=== PATIENT | male | born 1930 | race Caucasian/White ===

== ENCOUNTER 2016-07-22 07:22 | Emergency (ER) | payer MEDICARE, BC, OTHER ==
[~2016-07-22] VITALS: Ht 175.3 cm; Wt 75.0 kg
[~2016-07-22 07:22] MED LIST: CEPH500C3 PO
[2016-07-22 07:25] VITALS: BP 136/66; PULSE 76; RESP 16; TEMP 98.7; O2SAT 96
--- NOTE | 2016-07-22 07:34 | PD ---
HPI Chief Complaint: Injury Time Seen by Provider: 07:33 Travel History International Travel<30 days: No Contact w/Intl Traveler<30days: No Traveled to known affect area: No History of Present Illness HPI 86-year-old male came to the emergency room after he tripped and stubbed his right great toe. Patient says that was on his floor. There was a lot of bleeding at the site. He was in intense pain when this first happened. He seems anxious and in pain still. He is awake and answering questions appropriately. He did not hit his head or injure any other part of his body. Vital signs were relatively stable. Patient cannot seem to remember well his last tetanus shot. He thinks it probably was 6 years ago but he is not 100% sure. [facility] Past Medical History Narrative Medical List of his past medical, surgical, social and family history was reviewed from the nursing note. 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 INGUINAL HERNIOPLASTY IN 2000) Appendectomy: Yes Oral Surgery: Yes (TONSILECTOMY) Tonsillectomy: Yes Other Surgery: Yes Social History Alcohol Use: No Tobacco Use: No Substance Use: No Allergies-Medications (Allergen,Severity, Reaction): Coded Allergies: Gabapentin (Verified Allergy, Severe, DIFFICULTY OF SWALLOWING, SOB, ) Mellaril (Verified Allergy, Severe, FLUSHED, HOT, 07/22/16) Comments List of his allergies reviewed from the nursing note. Reported Meds & Prescriptions Reported Meds & Active Scripts Active Bactrim DS (Sulfamethoxazole-Trimethoprim) 800-160 Mg Tab 1 Tab PO BID Hydrocodone-Acetaminophen 5-325 mg Tab 1 Tab PO Q6H PRN Keflex (Cephalexin) 500 Mg Cap 500 Mg PO Q8H Narrative Medication List of his home medications reviewed from the nursing note. Review of Systems Except as stated in HPI: all other systems reviewed are Neg Physical Exam Narrative GENERAL: Awake, alert, anxious, elderly, moderate distress SKIN: Focused skin assessment warm/dry. Right great toe has a laceration proximal to the nail. The bleeding seems to be controlled. Good cap refill distally. HEAD: Atraumatic. Normocephalic. EYES: Pupils equal and round. No scleral icterus. No injection or drainage. ENT: No nasal bleeding or discharge. Mucous membranes pink and moist. NECK: Trachea midline. No JVD. CARDIOVASCULAR: Regular rate and rhythm. No murmur appreciated. RESPIRATORY: No accessory muscle use. Clear to auscultation. Breath sounds equal bilaterally. GASTROINTESTINAL: Abdomen soft, non-tender, nondistended. Hepatic and splenic margins not palpable. MUSCULOSKELETAL: No obvious deformities. No clubbing. No cyanosis. No edema. Please see under the skin for the right great toe laceration description NEUROLOGICAL: Awake and alert. No obvious cranial nerve deficits. Motor grossly within normal limits. Normal speech. PSYCHIATRIC: Appropriate mood and affect; insight and judgment normal. Data Data Last Documented VS Vital Signs Date Time Temp Pulse Resp B/P Pulse Ox O2 Delivery O2 Flow Rate FiO2 07/22/16 07:25 98.7 76 16 136/66 96 Orders Toe (Min 2vws) (07/22/16 ) Acetamin-Hydrocod 325-5 Mg ([place] 5-325 (07/22/16 07:45) Tetanus/Diphtheria Tox Adult (Tetanus/Di (07/22/16 07:45) Cephalexin (Keflex) (07/22/16 08:15) Lidocai-Epi 1%-1:100,000 Inj (Xylocaine- (07/22/16 08:45) Shoe Post Op (07/22/16 ) Shoe Cast (07/22/16 ) MDM Medical Decision Making Medical Screen Exam Complete: Yes Emergency Medical Condition: Yes Medical Record Reviewed: Yes Differential Diagnosis Fracture phalanx, laceration Narrative Course 7:51 AM patient was medicated for pain. He was given tetanus. Awaiting for the x-ray to be done and resulted. 8:43 AM the distal phalanx shows an impacted fracture. I discussed the case with Dr. Park from podiatry. She was in agreement with the antibiotic. She wanted the wound to be cleaned well and loosely sutured. As per her patient could be discharged home on antibiotic and given a follow-up to her office. In fact as per her patient could go to her office today and make an appointment for an outpatient surgery. The PA will do the laceration repair. Please refer to her notes. Procedures EKG Prior to Arrival: No Diagnosis Primary Impression: Fracture of distal phalanx of toe Additional Impression: Toe laceration Qualified Code: S91.211A - Laceration of right great toe without foreign body with damage to nail, initial encounter Referrals: Chanell Park DPM Additional Instructions: Please follow-up with the medical and scientific illustrator was name and number been given to you in the discharge paper. You should go to her office after discharge from here to get an appointment for the outpatient surgery for the toe. Use the postop shoe for ambulation. Keep the wound clean and dry. Take the medication as per the prescription direction. Med/Other Pt SpecificInfo: Prescription(s) given Scripts Hydrocodone-Acetaminophen 5-325 mg Tab1 Tab PO Q6H PRN (PAIN) #20 TAB Ref 0 Prov:Manoj Johnson MD 07/22/16 Cephalexin (Keflex)500 Mg [id number] Mg PO Q8H #30 CAP Ref 0 Prov:Manoj Johnson MD 07/22/16 Disposition: DISCHARGE HOME Condition: Stable Manoj Johnson MD Jul 22, 2016 07:34
[2016-07-22] MEDS ORDERED: ACETAMINOPHEN/HYDROcodone 325 MG/5 MG TAB PO ONE (07:45)
[2016-07-22] MEDS ORDERED: TETANUS/DIPHTHERIA TOXOID ADULT 0.5 ML VIAL IM ONE (07:45)
[2016-07-22] MEDS ORDERED: CEPHALEXIN MONOHYDRATE 500 MG CAP PO ONE (08:15)
--- NOTE | 2016-07-22 08:34 | RADRPT ---
EXAM DATE/TIME: 07/22/2016 07:37 [facility] COMPARISON: ANKLE LEFT COMPLETE ([id number]), March 08, 2015, 16:45. INDICATIONS : Right Great toe swelling MEDICAL HISTORY : Arthritis. Neuropathy SURGICAL HISTORY : None. ENCOUNTER: Initial ACUITY: 1 day PAIN SCORE: 10/10 LOCATION: Right Great toe FINDINGS: The examination demonstrates a mildly displaced, impacted fracture involving the distal phalanx of th e first digit. There are mild degenerative changes in the first metatarsal phalangeal joint as well. The visualized bony structures demonstrate osteopenia. CONCLUSION: Impacted, minimally displaced fracture through the distal phalanx of the right great toe. Say Mario MD on July 22, 2016 at 8:31 Board Certified Radiologist. This report was verified electronically.
[2016-07-22] MEDS ORDERED: LIDOCAINE 1%/EPINEPHrine 1:100,000 SOLN 20 ML VIAL INFIL ONE (08:45)
[2016-07-22] MEDS ORDERED: CEPH-460 PO (08:47)
--- NOTE | 2016-07-22 09:13 | PD ---
Physical Exam Time Seen by Provider: 09:10 Narrative I repaired the laceration to the right great toe. Data Data Last Documented VS Vital Signs Date Time Temp Pulse Resp B/P Pulse Ox O2 Delivery O2 Flow Rate FiO2 07/22/16 07:25 98.7 76 16 136/66 96 Orders Toe (Min 2vws) (07/22/16 ) Acetamin-Hydrocod 325-5 Mg ([place] 5-325 (07/22/16 07:45) Tetanus/Diphtheria Tox Adult (Tetanus/Di (07/22/16 07:45) Cephalexin (Keflex) (07/22/16 08:15) Lidocai-Epi 1%-1:100,000 Inj (Xylocaine- (07/22/16 08:45) Shoe Post Op (07/22/16 ) MDM Supervised Visit with ELI: Yes Narrative Course I repaired the laceration to the right great toe. See my procedure note for laceration repair. Procedures Procedure Narrative LACERATION LOCATION: Right great toe at base of toenail LENGTH: 2 cm NUMBER OF STITCHES/JANET: 4 simple interrupted sutures REPAIR: The area of the laceration was prepped with Betadine and sterilely draped. The toe was digitally blocked with 1% lidocaine. The wound was copiously irrigated and explored without evidence of foreign body , tendon injury or neurovascular injury. The wound was closed using 4-0 Prolene. This was a single layer repair. A sterile dressing was applied. The patient was advised to keep the dressing clean and dry. Patient tolerated the procedure well. Diagnosis Primary Impression: Fracture of distal phalanx of toe Additional Impression: Toe laceration Qualified Code: S91.211A - Laceration of right great toe without foreign body with damage to nail, initial encounter Referrals: Chanell Park DPM Additional Instruction: Please follow-up with the logistics operations director was name and number been given to you in the discharge paper. You should go to her office after discharge from here to get an appointment for the outpatient surgery for the toe. Use the postop shoe for ambulation. Keep the wound clean and dry. Take the medication as per the prescription direction. Scripts Cephalexin (Keflex)500 Mg [id number] Mg PO Q8H #30 CAP Ref 0 Prov:Manoj Johnson MD 07/22/16 Disposition: 01 DISCHARGE HOME Condition: Stable Lilo Corona Jul 22, 2016 09:12
[2016-07-22] MEDS ORDERED: HYDR-3516 PO (09:27)
== END 2016-07-22 09:48 | disposition home or self-care (01) ==
LOC: NEPE 07:22
DX: S92.421A Displaced fracture of distal phalanx of right great toe, initial encounter for closed fracture (principal); W18.40XA Slipping, tripping and stumbling without falling, unspecified, initial encounter
CPT/HCPCS: 12001; 73660; 99283; L3260

== ENCOUNTER 2016-07-25 08:26 | Emergency (ER) | payer MEDICARE, BC, OTHER ==
[~2016-07-25] VITALS: Ht 175.3 cm; Wt 70.0 kg
[~2016-07-25 08:26] MED LIST changes: +CEPH-460 PO; -CEPH500C3 PO; +HYDR-3516 PO
[2016-07-25 08:42] VITALS: BP 140/74; PULSE 72; RESP 20; TEMP 97.7; O2SAT 97
[2016-07-25] MEDS ORDERED: TETANUS/DIPHTHERIA TOXOID ADULT 0.5 ML VIAL IM ONE (09:00)
[2016-07-25 09:15] LABS: AUTOMATED NEUTROPHIL # 2.8 TH/MM3 (1.8-7.7); BASOPHIL % 0.9 % (0.0-2.0); EOSINOPHIL # 0.3 TH/MM3 (0-0.4); HEMATOCRIT 35.2 % (39.0-51.0); HEMO FLAGS DIFF FINAL; LYMPH % 29.3 % (9.0-44.0); LYMPHOCYTE # 1.6 TH/MM3 (1.0-4.8); MEAN CELL VOLUME 93.5 FL (80.0-100.0); MEAN CORPUSCULAR HEMOGLOBIN 32.3 PG (27.0-34.0); MEAN CORPUSCULAR HGB CONC 34.6 % (32.0-36.0); MONO % 10.6 % (0.0-8.0); NEUT % 53.2 % (16.0-70.0); PLATELET COUNT 206 TH/MM3 (150-450); RED BLOOD COUNT 3.77 MIL/MM3 (4.50-5.90); RED CELL DISTRIBUTION WIDTH 14.1 % (11.6-17.2); WHITE BLOOD COUNT 5.3 TH/MM3 (4.0-11.0)
[2016-07-25 09:31] LABS: BICARBONATE 27.6 MEQ/L (21.0-32.0); POTASSIUM 3.7 MEQ/L (3.5-5.1)
--- NOTE | 2016-07-25 09:43 | PD ---
HPI Chief Complaint: Medical Clearance Time Seen by Provider: 08:43 Travel History International Travel<30 days: No Contact w/Intl Traveler<30days: No Traveled to known affect area: No History of Present Illness HPI 86 yo male arrives by EMS. He reports an episode of shaking when he woke up this morning lasting maybe 30 minutes or so. It resolved spontaneously. He reports yesterday he was seen by podiatry Dr. Saldaña. A few days prior the patient suffered an impacted fracture of the right great toe with a laceration. That was repaired in the ER with a follow-up yesterday as described above. He denies fever. He denies interim injury. He reports compliance with Keflex. He also states he believes he did not receive a tetanus shot during his last visit. Review the records show that it was ordered. He notes a wound care nurse was supposed to visit him today however none called. The patient did arrive to the ER at approximately 8:40 AM. PFSH Past Medical History Arthritis: Yes Blood Disorders: No Anxiety: Yes (ATIVAN) Cancer: Yes (RECTAL IN 2002) Cardiovascular Problems: No Chemotherapy: Yes (and radiation) Diabetes: No Diminished Hearing: Yes Endocrine: No Gastrointestinal Disorders: Yes Glaucoma: No Genitourinary: No Immune Disorder: No Implanted Vascular Access Dvce: No Insomnia: Yes Musculoskeletal: Yes (SPINAL STENOSIS) Neurologic: Yes (PERIPHERAL NEUROPATHY BOTH LOWER EXT(feet)) Respiratory: No Radiation Therapy: Yes (IN 2002 FOR RECTAL CA) Past Surgical History Abdominal Surgery: Yes (LT. INGUINAL HERNIOPLASTY IN 2000) Appendectomy: Yes Oral Surgery: Yes (TONSILECTOMY) Tonsillectomy: Yes Other Surgery: Yes Social History Alcohol Use: No Tobacco Use: No Substance Use: No Allergies-Medications (Allergen,Severity, Reaction): Coded Allergies: Gabapentin (Verified Allergy, Severe, DIFFICULTY OF SWALLOWING, SOB, ) Mellaril (Verified Allergy, Severe, FLUSHED, HOT, 07/22/16) Reported Meds & Prescriptions Reported Meds & Active Scripts Active Hydrocodone-Acetaminophen 5-325 mg Tab 1 Tab PO Q6H PRN Keflex (Cephalexin) 500 Mg Cap 500 Mg PO Q8H Review of Systems Except as stated in HPI: all other systems reviewed are Neg General / Constitutional: Positive: Other, No: Fever Musculoskeletal: Positive: Pain Skin: Positive Lesions Physical Exam Narrative GENERAL: 86-year-old male, mildly anxious though cooperative SKIN: Focused skin assessment warm/dry. Minimal erythema overlying the dorsum of the right great toe, well approximated Prolene sutures, no purulent discharge about the right great toe. The right great toe is slightly warm. HEAD: Atraumatic. Normocephalic. EYES: Pupils equal and round. No scleral icterus. No injection or drainage. ENT: No nasal bleeding or discharge. Mucous membranes pink and moist. NECK: Trachea midline. No JVD. CARDIOVASCULAR: Regular rate and rhythm. No murmur appreciated. RESPIRATORY: No accessory muscle use. Clear to auscultation. Breath sounds equal bilaterally. GASTROINTESTINAL: Abdomen soft, non-tender, nondistended. Hepatic and splenic margins not palpable. MUSCULOSKELETAL: No obvious deformities. No clubbing. No cyanosis. No edema. NEUROLOGICAL: Awake and alert. No obvious cranial nerve deficits. Motor grossly within normal limits. Normal speech. PSYCHIATRIC: Appropriate mood and affect; insight and judgment normal. Data Data Last Documented VS Vital Signs Date Time Temp Pulse Resp B/P Pulse Ox O2 Delivery O2 Flow Rate FiO2 07/25/16 08:42 97.7 72 20 140/74 97 Room Air VS reviewed Orders Basic Metabolic Panel (Bmp) (07/25/16 08:51) Complete Blood Count With Diff (07/25/16 08:51) Wound Culture And Gram Stain (07/25/16 08:51) Iv Access Insert/Monitor (07/25/16 08:51) Wound Care (07/25/16 08:51) Tetanus/Diphtheria Tox Adult (Tetanus/Di (07/25/16 09:00) Toe (Min 2vws) (07/25/16 08:51) Sulfamet-Trimeth Ds 800-160 Mg (Bactrim (07/25/16 09:45) Labs Laboratory Tests Test 07/25/16 08:59 White Blood Count 5.3 TH/MM3 Red Blood Count 3.77 MIL/MM3 Hemoglobin 12.2 GM/DL Hematocrit 35.2 % Mean Corpuscular Volume 93.5 FL Mean Corpuscular Hemoglobin 32.3 PG Mean Corpuscular Hemoglobin 34.6 % Concent Red Cell Distribution Width 14.1 % Platelet Count 206 TH/MM3 Mean Platelet Volume 6.8 FL Neutrophils (%) (Auto) 53.2 % Lymphocytes (%) (Auto) 29.3 % Monocytes (%) (Auto) 10.6 % Eosinophils (%) (Auto) 6.0 % Basophils (%) (Auto) 0.9 % Neutrophils # (Auto) 2.8 TH/MM3 Lymphocytes # (Auto) 1.6 TH/MM3 Monocytes # (Auto) 0.6 TH/MM3 Eosinophils # (Auto) 0.3 TH/MM3 Basophils # (Auto) 0.0 TH/MM3 CBC Comment DIFF FINAL Differential Comment Sodium Level 137 MEQ/L Potassium Level 3.7 MEQ/L Chloride Level 101 MEQ/L Carbon Dioxide Level 27.6 MEQ/L Anion Gap 8 MEQ/L Blood Urea Nitrogen 15 MG/DL Creatinine 0.74 MG/DL Estimat Glomerular Filtration 100 ML/MIN Rate Random Glucose 93 MG/DL Calcium Level 8.8 MG/DL MDM Medical Decision Making Medical Screen Exam Complete: Yes Emergency Medical Condition: Yes Medical Record Reviewed: Yes Differential Diagnosis cellulitis, septic arthritis, abscess, fracture Narrative Course CBC & BMP Diagram 07/25/16 08:59 The BMP is normal Diagnosis Primary Impression: Fracture of distal phalanx of toe Additional Impression: Toe laceration Qualified Code: S91.211D - Laceration of right great toe without foreign body with damage to nail, subsequent encounter Referrals: Primary Care Physician 2 days Additional Instructions: You have a choice when it comes to health care, and we are glad that you chose [facility]. Hopefully, we have met your expectations on today's visit. You are welcome to return to [facility] at any time, as we are committed to meeting the health care needs of our community. Med/Other Pt SpecificInfo: Prescription(s) given Scripts Sulfamethoxazole-Trimethoprim (Bactrim DS)800-160 Mg Tab1 Tab PO BID #14 TAB Ref 0 Prov:Say Ospina MD 07/25/16 Disposition: 01 DISCHARGE HOME Condition: Stable Say Ospina MD Jul 25, 2016 09:43
--- NOTE | 2016-07-25 09:43 | RADRPT ---
EXAM DATE/TIME: 07/25/2016 08:56 [facility] COMPARISON: TOE RIGHT 1ST DIGIT(MIN 2VWS), July 22, 2016, 7:37. INDICATIONS : Patient complains of pain and swelling. MEDICAL HISTORY : Arthritis. Neuropathy SURGICAL HISTORY : None. ENCOUNTER: Subsequent ACUITY: 1 week PAIN SCORE: 5/10 LOCATION: Right foot, great toe FINDINGS: A minimally displaced transverse fracture of the proximal aspect of the great toe distal phalanx is a gain noted without significant change from the previous examination. Mild arthritic changes noted in the great toe. Elsewhere in the visualized foot, or changes in the fifth metatarsal most suggestive o f Paget's disease with coarsening of the trabecular pattern and diffuse mixed lucent and sclerotic ch jovita involving the entirety of the bone. Fibrous dysplasia would be an additional consideration. CONCLUSION: Great toe fracture is unchanged Lobo Graves MD on July 25, 2016 at 9:36 Board Certified Radiologist. This report was verified electronically.
[2016-07-25] MEDS ORDERED: SULFAMETHOXAZOLE-TRIMETHOPRIM DS 800-160 MG TAB PO ONE (09:45)
[2016-07-25] MEDS ORDERED: BACT800T5 PO (10:14)
--- NOTE | 2016-07-25 13:55 | HHI.FF ---
Face to Face Verification Diagnosis: (1) Toe laceration (2) Fracture of distal phalanx of toe Home Health Nursing Order: Signs/symptoms of disease process Wound care and dressing changes I have seen patient Kvng Wade on 07/25/16. My clinical findings support the need for the requested home health care services because: Limited ability to care for self I certify that my clinical findings support that this patient is homebound because: Need for psychosocial assistance Say Ospina MD Jul 25, 2016 13:55
== END 2016-07-25 14:44 | disposition home or self-care (01) ==
LOC: NEPC 08:26
DX: S92.421D Displaced fracture of distal phalanx of right great toe, subsequent encounter for fracture with routine healing (principal); S91.211D Laceration without foreign body of right great toe with damage to nail, subsequent encounter; B95.61 Methicillin susceptible Staphylococcus aureus infection as the cause of diseases classified elsewhere; H91.90 Unspecified hearing loss, unspecified ear; Z23 Encounter for immunization; Z87.39 Personal history of other diseases of the musculoskeletal system and connective tissue; Z86.59 Personal history of other mental and behavioral disorders; Z85.048 Personal history of other malignant neoplasm of rectum, rectosigmoid junction, and anus; Z87.19 Personal history of other diseases of the digestive system; Z86.69 Personal history of other diseases of the nervous system and sense organs; X58.XXXD Exposure to other specified factors, subsequent encounter
CPT/HCPCS: 73660; 80048; 85025; 86403; 87070; 87186; 90471; 90714

== ENCOUNTER 2016-10-02 07:46 | Emergency (ER) | payer MEDICARE, BC, OTHER ==
[~2016-10-02] VITALS: Ht 175.3 cm; Wt 75.0 kg
[~2016-10-02 07:46] MED LIST changes: +BACT800T5 PO
[2016-10-02 07:48] VITALS: BP 128/63; PULSE 71; RESP 16; TEMP 97.6; O2SAT 95
--- NOTE | 2016-10-02 08:32 | PD ---
HPI Chief Complaint: Numbness/Tingling Time Seen by Provider: 08:18 Travel History International Travel<30 days: No Contact w/Intl Traveler<30days: No Traveled to known affect area: No History of Present Illness HPI Patient 86-year-old delightful man who presents emergency department for evaluation of numbness and tingling to his lower extremities which is been present for years and is no different today, as well as some lesions on his scalp which been present for some time as well. Patient states took the bus here today and was going to discuss with his regular physician but has not had an opportunity to do so yet. He states that he has taken gabapentin in the past but is allergic to it and cannot take. He denies any chest pain shortness of breath abdominal pain nausea vomiting focalized weakness visual difficulties. Patient states he took the bus here as he does no longer drive. PFSH Past Medical History Medical History: Denies Significant Hx Arthritis: Yes Blood Disorders: No Anxiety: Yes (ATIVAN) Cancer: Yes (RECTAL IN 2002) Cardiovascular Problems: No Chemotherapy: Yes (and radiation) Diabetes: No Diminished Hearing: Yes Endocrine: No Gastrointestinal Disorders: Yes Glaucoma: No Genitourinary: No Immune Disorder: No Implanted Vascular Access Dvce: No Insomnia: Yes Musculoskeletal: Yes (SPINAL STENOSIS) Neurologic: Yes (PERIPHERAL NEUROPATHY BOTH LOWER EXT(feet)) Respiratory: No Radiation Therapy: Yes (IN 2002 FOR RECTAL CA) Tetanus Vaccination: < 5 Years Influenza Vaccination: Yes Past Surgical History Abdominal Surgery: Yes Appendectomy: Yes Oral Surgery: Yes (TONSILECTOMY) Tonsillectomy: Yes Other Surgery: Yes Social History Alcohol Use: No Tobacco Use: No Substance Use: No Allergies-Medications (Allergen,Severity, Reaction): Coded Allergies: Gabapentin (Verified Allergy, Severe, DIFFICULTY OF SWALLOWING, SOB, ) Mellaril (Verified Allergy, Severe, FLUSHED, HOT, 10/02/16) Reported Meds & Prescriptions Reported Meds & Active Scripts Active No Active Prescriptions or Reported Medications Review of Systems Except as stated in HPI: all other systems reviewed are Neg Physical Exam Narrative GENERAL: Well-developed well-nourished in no apparent distress SKIN: Several small foci of scaly lesions on his scalp as well as one on his right anterior chest. Could be consistent with squamous cell carcinoma was. No evidence of melanoma seen in these areas. No cellulitis no erythema no excoriations. HEAD: Atraumatic. Normocephalic. EYES: Pupils equal and round. No scleral icterus. No injection or drainage. ENT: No nasal bleeding or discharge. Mucous membranes pink and moist. NECK: Trachea midline. No JVD. CARDIOVASCULAR: Regular rate and rhythm. No murmur appreciated. RESPIRATORY: No accessory muscle use. Clear to auscultation. Breath sounds equal bilaterally. GASTROINTESTINAL: Abdomen soft, non-tender, nondistended. Hepatic and splenic margins not palpable. MUSCULOSKELETAL: No obvious deformities. No clubbing. No cyanosis. No edema. NEUROLOGICAL: Awake and alert and oriented. Ambulates with a short gait but narrow. Cranial nerves II through XII are grossly intact and nonfocal, 5 out of 5 strength in all 4 extremity's. Cerebellar testing negative. PSYCHIATRIC: Appropriate mood and affect; insight and judgment normal. Data Data Last Documented VS Vital Signs Date Time Temp Pulse Resp B/P Pulse Ox O2 Delivery O2 Flow Rate FiO2 10/02/16 07:48 97.6 71 16 128/63 95 MDM Medical Decision Making Medical Screen Exam Complete: Yes Emergency Medical Condition: Yes Differential Diagnosis Peripheral neuropathy, squamous cell cancer, skin lesions, Narrative Course Patient 86-year-old male presents emergency department for evaluation of multiple chronic complaints, he appears well and in no obvious distress. Discussed with him he needs to follow-up with a commodities broker and was referred to the clinic in [facility]. The subject of his neuropathy recommended he take some Tylenol but no more than per label instructions. Discussed need for follow-up with his primary care physician and return to ED criteria. He was very grateful for the visit discharged to self-care. Diagnosis Primary Impression: Skin lesion Additional Impression: Peripheral neuropathy Referrals: [facility] Caller Additional Instructions: Call your primary care physician today, follow-up with a commodities broker as soon as possible. Try Tylenol 500 mg every 8 hours as needed for pain. No more frequent than that. Scripts No Active Prescriptions or Reported Meds Disposition: 01 DISCHARGE HOME Condition: Stable Jose L Clark MD Oct 02, 2016 08:32
== END 2016-10-02 09:37 | disposition home or self-care (01) ==
LOC: NEPC 07:46
DX: G62.9 Polyneuropathy, unspecified (principal); L98.8 Other specified disorders of the skin and subcutaneous tissue; Z85.048 Personal history of other malignant neoplasm of rectum, rectosigmoid junction, and anus
CPT/HCPCS: 99282

== ENCOUNTER 2016-10-17 10:48 | Emergency (ER) | payer MEDICARE, BC, OTHER ==
[~2016-10-17] VITALS: Ht 172.7 cm; Wt 60.0 kg
[2016-10-17 10:52] VITALS: BP 126/62; PULSE 71; RESP 20; TEMP 97.6; O2SAT 97
[2016-10-17] MEDS ORDERED: IBUP-232 PO (10:59)
[2016-10-17 11:27] LABS: AUTOMATED NEUTROPHIL # 3.1 TH/MM3 (1.8-7.7); BASOPHIL % 0.9 % (0.0-2.0); EOSINOPHIL # 0.2 TH/MM3 (0-0.4); EOSINOPHIL % 3.4 % (0.0-4.0); HEMATOCRIT 34.6 % (39.0-51.0); HEMO FLAGS DIFF FINAL; LYMPH % 21.8 % (9.0-44.0); LYMPHOCYTE # 1.1 TH/MM3 (1.0-4.8); MEAN CELL VOLUME 93.9 FL (80.0-100.0); MEAN CORPUSCULAR HEMOGLOBIN 31.8 PG (27.0-34.0); MEAN CORPUSCULAR HGB CONC 33.9 % (32.0-36.0); MONO % 10.3 % (0.0-8.0); NEUT % 63.6 % (16.0-70.0); PLATELET COUNT 220 TH/MM3 (150-450); RED BLOOD COUNT 3.69 MIL/MM3 (4.50-5.90); RED CELL DISTRIBUTION WIDTH 13.8 % (11.6-17.2)
--- NOTE | 2016-10-17 11:31 | PD ---
HPI Chief Complaint: Altered Mental Status Time Seen by Provider: 11:00 Travel History International Travel<30 days: No Contact w/Intl Traveler<30days: No Traveled to known affect area: No History of Present Illness HPI 86-year-old male presents from an urgent care for evaluation of dizziness and unsteady gait with unknown baseline. Report was that he took the bus to the urgent care and they were concerned about how unsteady he was. Patient does note dizziness intermittently and pain near his left jaw where he had biopsy of a skin lesion. He states that the dizziness is new for him and he does feel a little bit weak. He denies any current pain or complaints other than the dizziness at this time. He states that he had the biopsy to check for cancer. Patient is by himself and a poor historian. PFSH Past Medical History Arthritis: Yes Blood Disorders: No Anxiety: Yes (ATIVAN) Cancer: Yes (RECTAL IN 2002) Cardiovascular Problems: No Chemotherapy: Yes (and radiation) Diabetes: No Diminished Hearing: Yes Endocrine: No Gastrointestinal Disorders: Yes Glaucoma: No Genitourinary: No Immune Disorder: No Implanted Vascular Access Dvce: No Insomnia: Yes Musculoskeletal: Yes (SPINAL STENOSIS) Neurologic: Yes (PERIPHERAL NEUROPATHY BOTH LOWER EXT(feet)) Respiratory: No Radiation Therapy: Yes (IN 2002 FOR RECTAL CA) Past Surgical History Abdominal Surgery: Yes Appendectomy: Yes Oral Surgery: Yes (TONSILECTOMY) Tonsillectomy: Yes Other Surgery: Yes Social History Alcohol Use: No Tobacco Use: No Substance Use: No Allergies-Medications (Allergen,Severity, Reaction): Coded Allergies: Gabapentin (Verified Allergy, Severe, DIFFICULTY OF SWALLOWING, SOB, ) Mellaril (Verified Allergy, Severe, FLUSHED, HOT, 10/02/16) Reported Meds & Prescriptions Reported Meds & Active Scripts Active Reported Ibuprofen 600 Mg Tab 600 Mg PO Q8H PRN Review of Systems ROS Limitations: Poor Historian Except as stated in HPI: all other systems reviewed are Neg Physical Exam Narrative GENERAL: Well-nourished, well-developed patient. SKIN: Warm and dry. Left orthodox area with no active signs of infection noted to biopsy site and appears to be well healing HEAD: Normocephalic EYES: No injection or drainage. ENT: No nasal drainage noted. NECK: Supple, trachea midline. CARDIOVASCULAR: Regular rate and rhythm RESPIRATORY: Breath sounds equal bilaterally at apices. No accessory muscle use. GASTROINTESTINAL: Abdomen soft, non-tender, nondistended. NEUROLOGICAL: Awake and alert. Moves all extremities. Normal speech. Data Data Last Documented VS Vital Signs Date Time Temp Pulse Resp B/P Pulse Ox O2 Delivery O2 Flow Rate FiO2 10/17/16 13:27 68 20 122/70 10/17/16 11:39 96 10/17/16 10:52 97.6 Orders Magnesium (Mg) (10/17/16 11:00) Phosphorus (Po4) (10/17/16 11:00) Complete Blood Count With Diff (10/17/16 11:00) Comprehensive Metabolic Panel (10/17/16 11:00) Ckmb (Isoenzyme) Profile (10/17/16 11:00) Troponin I (10/17/16 11:00) Urinalysis - C+S If Indicated (10/17/16 11:00) Act Partial Throm Time (Ptt) (10/17/16 11:00) Prothrombin Time / Inr (Pt) (10/17/16 11:00) Ct Brain W/O Iv Contrast(Rout) (10/17/16 ) Chest, Single Ap (10/17/16 ) Electrocardiogram (10/17/16 ) Iv Access Insert/Monitor (10/17/16 11:00) Ecg Monitoring (10/17/16 11:00) Oximetry (10/17/16 11:00) CKMB (10/17/16 11:00) CKMB% (10/17/16 11:00) Labs Laboratory Tests Test 10/17/16 10/17/16 11:00 12:00 White Blood Count 5.0 TH/MM3 Red Blood Count 3.69 MIL/MM3 Hemoglobin 11.7 GM/DL Hematocrit 34.6 % Mean Corpuscular Volume 93.9 FL Mean Corpuscular Hemoglobin 31.8 PG Mean Corpuscular Hemoglobin 33.9 % Concent Red Cell Distribution Width 13.8 % Platelet Count 220 TH/MM3 Mean Platelet Volume 6.9 FL Neutrophils (%) (Auto) 63.6 % Lymphocytes (%) (Auto) 21.8 % Monocytes (%) (Auto) 10.3 % Eosinophils (%) (Auto) 3.4 % Basophils (%) (Auto) 0.9 % Neutrophils # (Auto) 3.1 TH/MM3 Lymphocytes # (Auto) 1.1 TH/MM3 Monocytes # (Auto) 0.5 TH/MM3 Eosinophils # (Auto) 0.2 TH/MM3 Basophils # (Auto) 0.0 TH/MM3 CBC Comment DIFF FINAL Differential Comment Prothrombin Time 10.7 SEC Prothromb Time International 1.0 RATIO Ratio Activated Partial 29.3 SEC Thromboplast Time Sodium Level 138 MEQ/L Potassium Level 4.4 MEQ/L Chloride Level 104 MEQ/L Carbon Dioxide Level 27.6 MEQ/L Anion Gap 6 MEQ/L Blood Urea Nitrogen 13 MG/DL Creatinine 0.69 MG/DL Estimat Glomerular Filtration 108 ML/MIN Rate Random Glucose 103 MG/DL Calcium Level 8.9 MG/DL Phosphorus Level 2.8 MG/DL Magnesium Level 2.5 MG/DL Total Bilirubin 0.5 MG/DL Aspartate Amino Transf 27 U/L (AST/SGOT) Alanine Aminotransferase 26 U/L (ALT/SGPT) Alkaline Phosphatase 68 U/L Total Creatine Kinase 125 U/L Creatine Kinase MB 3.2 NG/ML Troponin I LESS THAN 0.02 NG/ML Total Protein 7.2 GM/DL Albumin 3.7 GM/DL Urine Color DARK-YELLOW Urine Turbidity CLEAR Urine pH 5.0 Urine Specific [place] 1.016 Urine Protein NEG mg/dL Urine Glucose (UA) NEG mg/dL Urine Ketones NEG mg/dL Urine Occult Blood NEG Urine Nitrite NEG Urine Bilirubin NEG Urine Urobilinogen LESS THAN 2.0 MG/DL Urine Leukocyte Esterase NEG Urine RBC LESS THAN 1 /hpf Urine WBC LESS THAN 1 /hpf Urine Mucus FEW /lpf Microscopic Urinalysis Comment CULT NOT INDICATED MDM Medical Decision Making Medical Screen Exam Complete: Yes Emergency Medical Condition: Yes Medical Record Reviewed: Yes (h confirmed) Interpretation(s) CBC & BMP Diagram 10/17/16 11:00 Last [address] 10/17/16 0000 Signed Impressions: Service Date/Time: Monday, October 17, 2016 11:33 - CONCLUSION: Negative for acute process. Thomas Mario MD FACR Chest X-Ray 10/17/16 0000 Signed Impressions: Service Date/Time: Monday, October 17, 2016 11:03 - CONCLUSION: No acute disease. Thomas Mario MD FACR Differential Diagnosis Anemia, renal failure, intercranial, UTI, vertigo Narrative Course Will check blood work, imaging and reevaluate ed workup no acute, Patient denies any new complaints and states that they are feeling better. Patient happy with care, all questions answered. Patient knows that follow up is incumbent on them and to return to the emergency room immediately if new or worsening symptoms develop. Patient given strict return precautions, vitals reviewed and are normal, agrees to further workup as an outpatient. Patient able to ambulate without assistance and has a slow shuffling gait that he states has been that way for years. He states he wants to go when offered observation Diagnosis Primary Impression: Dizziness Patient Instructions: General Instructions Additional Instructions: return as needed, follow with primary thursday Med/Other Pt SpecificInfo: No Change to Meds Disposition: 01 DISCHARGE HOME Condition: Stable Sil Wynn MD Oct 17, 2016 11:31
[2016-10-17 11:38] LABS: APTT (PATIENT) 29.3 SEC (24.3-30.1); PROTHROMBIN TIME - PATIENT 10.7 SEC (9.8-11.6)
[2016-10-17 11:39] VITALS: O2SAT 96
--- NOTE | 2016-10-17 11:50 | RADRPT ---
EXAM DATE/TIME: 10/17/2016 11:33 [facility] COMPARISON: CT BRAIN W/O CONTRAST, July 03, 2010, 10:51. INDICATIONS : Weakness, cephalgia. RADIATION DOSE: 56.35 CTDIvol (mGy) MEDICAL HISTORY : Carcinoma, rectal. SURGICAL HISTORY : Appendectomy. ENCOUNTER: Initial ACUITY: 1 day PAIN SCALE: 3/10 LOCATION: Left temporal TECHNIQUE: Multiple contiguous axial images were obtained of the head. Using automated exposure control and adj ustment of the mA and/or kV according to patient size, radiation dose was kept as low as reasonably a chievable to obtain optimal diagnostic quality images. DICOM format image data is available electro nically for review and comparison. FINDINGS: CEREBRUM: The ventricles are normal for age. No evidence of midline shift, mass lesion, hemorrhage or acute in farction. No extra-axial fluid collections are seen. POSTERIOR FOSSA: The cerebellum and brainstem are intact. The 4th ventricle is midline. The cerebellopontine angle i s unremarkable. EXTRACRANIAL: The visualized portion of the orbits is intact. SKULL: The calvaria is intact. No evidence of skull fracture. CONCLUSION: Negative for acute process. Thomas Mario MD FACR on October 17, 2016 at 11:47 Board Certified Radiologist. This report was verified electronically.
--- NOTE | 2016-10-17 11:50 | RADRPT ---
EXAM DATE/TIME: 10/17/2016 11:03 [facility] COMPARISON: No previous studies available for comparison. INDICATIONS : Short of breath, palpitations today MEDICAL HISTORY : AMS SURGICAL HISTORY : lumbar fusion ENCOUNTER: Initial ACUITY: 1 day PAIN SCORE: Non-responsive. LOCATION: Bilateral chest FINDINGS: A single view of the chest demonstrates the lungs to be symmetrically aerated without evidence of mas s, infiltrate or effusion. The cardiomediastinal contours are unremarkable. Osseous structures are intact. CONCLUSION: No acute disease. Thomas Mario MD FACR on October 17, 2016 at 11:48 Board Certified Radiologist. This report was verified electronically.
[2016-10-17 11:57] LABS: ALT (GPT) 26 U/L (12-78); ANION GAP 6 MEQ/L (5-15); AST (GOT) 27 U/L (15-37); BICARBONATE 27.6 MEQ/L (21.0-32.0); BLOOD UREA NITROGEN 13 MG/DL (7-18); CHLORIDE 104 MEQ/L (98-107); GLOMERULAR FILTRATION RATE 108 ML/MIN (>89); MAGNESIUM 2.5 MG/DL (1.5-2.5); POTASSIUM 4.4 MEQ/L (3.5-5.1); SODIUM (NA) 138 MEQ/L (136-145)
[2016-10-17 12:01] LABS: ALKALINE PHOSPHATASE 68 U/L (45-117); CREATINE KINASE 125 U/L (39-308); TOTAL BILIRUBIN ADULT 0.5 MG/DL (0.2-1.0)
[2016-10-17 12:16] LABS: CKMB 3.2 NG/ML (0.5-3.6)
[2016-10-17 12:20] LABS: BLOOD, URINE NEG (NEG); COMMENT (UR) CULT NOT INDICATED; CULTURE IF INDICATED CULT NOT INDICATED; GLUCOSE,URINE NEG (NEG); KETONE, URINE NEG (NEG); MUCUS URINE FEW /lpf (OCC); NITRITE,URINE NEG (NEG); URINE COLOR DARK-YELLOW (YELLW/STRAW)
[2016-10-17 13:27] VITALS: BP 122/70
--- NOTE | 2016-10-17 14:24 | EKG ---
Date Performed: 10/17/2016 Time Performed: 11:47:53 PTAGE: 86 years EKG: BASELINE ARTIFACT PRESENT. Sinus rhythm INDETERMINATE AXIS ATYPICAL ECG Probably no significant change. PREVIOUS TRACING : 08/23/2014 14.57 DOCTOR: Joao Allen Interpretating Date/Time 10/17/2016 14:24:08
== END 2016-10-17 13:43 | disposition home or self-care (01) ==
LOC: NEPE 10:48
DX: R42 Dizziness and giddiness (principal); F41.9 Anxiety disorder, unspecified; G62.9 Polyneuropathy, unspecified; M19.90 Unspecified osteoarthritis, unspecified site; Z79.1 Long term (current) use of non-steroidal anti-inflammatories (NSAID)
CPT/HCPCS: 70450; 71010; 80053; 81001; 82550; 82552; 83735; 84100; 84484; 85025; 85610; 85730; 93005

== ENCOUNTER 2016-11-22 08:01 | Emergency (ER) | payer MEDICARE, BC, OTHER ==
[~2016-11-22] VITALS: Ht 175.3 cm; Wt 70.5 kg
[~2016-11-22 08:01] MED LIST changes: -BACT800T5 PO; -CEPH-460 PO; -HYDR-3516 PO; +IBUP-232 PO
[2016-11-22 08:12] VITALS: BP 143/67; PULSE 82; RESP 16; TEMP 98.4; O2SAT 98
[2016-11-22] MEDS ORDERED: TYLE325T PO (08:23)
[2016-11-22] MEDS ORDERED: NIAC500T4 PO (08:23)
[2016-11-22] MEDS ORDERED: ONE-TAB14 (08:23)
[2016-11-22] MEDS ORDERED: CO Q50CA (08:23)
[2016-11-22] MEDS ORDERED: VITATAB11 PO (08:23)
[2016-11-22] MEDS ORDERED: CEPH-460 PO (08:24)
[2016-11-22] MEDS ORDERED: PERI8.6T PO (08:27)
[2016-11-22] MEDS ORDERED: HYDR-3533 PO (08:27)
--- NOTE | 2016-11-22 08:27 | PD ---
HPI Chief Complaint: Skin Problem Time Seen by Provider: 08:12 Travel History International Travel<30 days: No Contact w/Intl Traveler<30days: No Traveled to known affect area: No History of Present Illness HPI 86, who presents to the emergency department complaining of left-sided facial pain. 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 He states since then he said pain and tightness in the area. No drainage. Otherwise has felt well. He is not taking any pain medications. They did put on prophylactic Keflex. He had a friend drop off today because been very sore. He is not on any blood thinners. He has fallen before and has instability at times due to some peripheral neuropathy. No other complaints. History Past Medical History Narrative Medical Peripheral neuropathy Social History Alcohol Use: No Tobacco Use: No Allergies-Medications (Allergen,Severity, Reaction): Coded Allergies: Gabapentin (Verified Allergy, Severe, DIFFICULTY OF SWALLOWING, SOB, ) Mellaril (Verified Allergy, Severe, FLUSHED, HOT, 11/22/16) Reported Meds & Prescriptions Reported Meds & Active Scripts Active Reported Ibuprofen 600 Mg Tab 600 Mg PO Q8H PRN Review of Systems Except as stated in HPI: all other systems reviewed are Neg Physical Exam Narrative GENERAL: Well-appearing 86-year-old man, no acute distress. SKIN: Focused skin assessment warm/dry. ENT: On the left cheek overlying the ramus of the mandible on the left there is a stellate surgical incision well approximated with stitches in place with no erythema redness swelling bruising or other abnormality. NECK: Trachea midline. No JVD. CARDIOVASCULAR: Warm and well perfused. RESPIRATORY: Normal rate and effort. MUSCULOSKELETAL: No obvious deformities. No clubbing. No cyanosis. No edema. Data Data Last Documented VS Vital Signs Date Time Temp Pulse Resp B/P Pulse Ox O2 Delivery O2 Flow Rate FiO2 11/22/16 08:14 18 11/22/16 08:12 98.4 82 143/67 98 MDM Medical Decision Making Medical Screen Exam Complete: Yes Emergency Medical Condition: Yes Differential Diagnosis Pain from skin surgery, infection, hematoma, nerve injury, other Narrative Course Medical decision making This 86, who presents emergency department for pain from recent skin surgery. He looks well. It is right over the parotid and the facial nerve. He reports he initially developed what sounds like a short bull's palsy likely from local anesthetic used after a couple hours. He has pain in the area. He is not any pain medications. We have some concern with his age that he would be at risk for falling. He states that he has fallen before but feels confident in his ability to ambulate without difficulty. We'll place on a small dose of Lortab, recommend Josie-Colace if needed for constipation, take precautions prevent falls , outpatient follow-up. Diagnosis Primary Impression: Left-sided face pain Additional Instructions: Take Lortab sparingly as needed for pain. Use caution as it can cause unsteadiness and increase her risk of falling. Take Josie-Colace with Lortab to prevent constipation. Med/Other Pt SpecificInfo: Prescription(s) given Scripts Sennosides-Docusate Sodium (Josie-Colace)8.6-50 Mg Tab2 Tab PO BID PRN ( Constipation) #10 TAB Ref 0 Prov:Favian Steward MD 11/22/16 Hydrocodone-Acetaminophen (Lortab)5-325 Mg Tab1 Tab PO Q6H PRN (PAIN) #8 TAB Prov:Favian Steward MD 11/22/16 Disposition: 01 DISCHARGE HOME Condition: Stable Favian Steward MD Nov 22, 2016 08:27
[2016-11-22] MEDS ORDERED: ACETAMINOPHEN/HYDROcodone 325 MG/5 MG TAB PO ONE (08:30)
== END 2016-11-22 08:59 | disposition home or self-care (01) ==
LOC: NEPE 08:01
DX: R51 Headache (principal); G62.9 Polyneuropathy, unspecified
CPT/HCPCS: 99283

== ENCOUNTER 2017-01-03 07:20 | Emergency (ER) | payer MEDICARE, BC, OTHER ==
[~2017-01-03] VITALS: Ht 175.3 cm; Wt 70.0 kg
[~2017-01-03 07:20] MED LIST changes: +CEPH-460 PO; +CO Q50CA; +HYDR-3533 PO; -IBUP-232 PO; +NIAC500T4 PO; +ONE-TAB14; +PERI8.6T PO; +TYLE325T PO; +VITATAB11 PO
[2017-01-03 07:24] VITALS: BP 111/61; PULSE 85; RESP 14; TEMP 97.9; O2SAT 98
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
--- NOTE | 2017-01-03 08:38 | RADRPT ---
EXAM DATE/TIME: 01/03/2017 07:53 [facility] COMPARISON: CT BRAIN W/O CONTRAST, October 17, 2016, 11:33. INDICATIONS : Fall one week ago, cephalgia for one week. RADIATION DOSE: 56.35 CTDIvol (mGy) MEDICAL HISTORY : Carcinoma, rectal. SURGICAL HISTORY : Tonsillectomy. ENCOUNTER: Initial ACUITY: 1 week PAIN SCALE: 4/10 LOCATION: Bilateral head TECHNIQUE: Multiple contiguous axial images were obtained of the head. Using automated exposure control and adj ustment of the mA and/or kV according to patient size, radiation dose was kept as low as reasonably a chievable to obtain optimal diagnostic quality images. DICOM format image data is available electro nically for review and comparison. FINDINGS: CEREBRUM: The ventricles and cortical sulci are widened. There is decreased density in the cerebral white matte r. No evidence of midline shift, mass lesion, hemorrhage or acute infarction. No extra-axial fluid collections are seen. POSTERIOR FOSSA: The cerebellum and brainstem are intact. The 4th ventricle is midline. The cerebellopontine angle i s unremarkable. EXTRACRANIAL: The visualized portion of the orbits is intact. SKULL: The calvaria is intact. No evidence of skull fracture. CONCLUSION: 1. No acute abnormality seen. 2. Atrophy. 3. Demyelination likely from small vessel ischemic change. Lobo Coleman MD on January 03, 2017 at 8:35 Board Certified Radiologist. This report was verified electronically.
--- NOTE | 2017-01-03 08:40 | RADRPT ---
EXAM DATE/TIME: 01/03/2017 08:08 [facility] COMPARISON: No previous studies available for comparison. INDICATIONS : Left hip pain post fall 1 week ago MEDICAL HISTORY : None. SURGICAL HISTORY : None. ENCOUNTER: Initial ACUITY: 1 week PAIN SCORE: 3/10 LOCATION: Left entire hip FINDINGS: No fracture is seen. The left hip joint is normally aligned. There is degenerative change of the lowe r lumbar spine L5-S1 level. Surgical hardware is seen in the L3-L5 levels. CONCLUSION: No acute abnormality seen. Lobo Coleman MD on January 03, 2017 at 8:37 Board Certified Radiologist. This report was verified electronically.
[2017-01-03 11:04] VITALS: BP 115/65; PULSE 82; RESP 14; TEMP 97.9; O2SAT 98
== END 2017-01-03 11:32 | disposition home or self-care (01) ==
LOC: NEPC 07:20
DX: S09.90XA Unspecified injury of head, initial encounter (principal); S70.02XA Contusion of left hip, initial encounter; S30.0XXA Contusion of lower back and pelvis, initial encounter; G89.29 Other chronic pain; M19.90 Unspecified osteoarthritis, unspecified site; G62.9 Polyneuropathy, unspecified; F41.9 Anxiety disorder, unspecified; W19.XXXA Unspecified fall, initial encounter; Y92.89 Other specified places as the place of occurrence of the external cause
CPT/HCPCS: 70450; 73502; 99284

== ENCOUNTER 2017-01-05 00:45 | Observation (INO) | payer MEDICARE, BC, OTHER ==
[~2017-01-05] VITALS: Ht 177.8 cm; Wt 68.0 kg
--- NOTE | 2017-01-05 02:04 | RADRPT ---
EXAM DATE/TIME: 01/05/2017 01:44 [facility] COMPARISON: No previous studies available for comparison. INDICATIONS : Lower back pain. Fall 8 days ago. RADIATION DOSE: 35.86 CTDIvol (mGy) MEDICAL HISTORY : Carcinoma, rectal. SURGICAL HISTORY : Appendectomy. Fusion, lumbar. ENCOUNTER: Initial ACUITY: 1 week PAIN SCALE: 6/10 LOCATION: lower back TECHNIQUE: Volumetric scanning of the lumbar spine was performed. Multiplanar reconstructions in the sagittal, coronal and oblique axial planes were performed. Using automated exposure control and adjustment of the mA and/or kV according to patient size, radiation dose was kept as low as reasonably achievable t o obtain optimal diagnostic quality images. DICOM format image data is available electronically for review and comparison. FINDINGS: VERTEBRAE: Bilateral posterior transpedicular fixation at L3-L4 and L4-L5 with intervening bone graft material. No fracture or dislocation. ALIGNMENT: No evidence of subluxation. T12-L1: The thecal sac has a normal diameter. No evidence of disc bulge or protrusion. The neural foramina are patent bilaterally. L1-L2: Vacuum disc phenomena. Disc space narrowing broad-based disc bulge. Moderate bony hypertrophy of the facets. Neural foramina and central canal are patent. L2-L3: Vacuum disc phenomenon. Disc space narrowing broad-based disc osteophyte complex. Prominent bony hype rtrophy of the facets. Central canal stenosis. Bilateral neural foraminal narrowing. L3-L4: Posterior fixation hardware generates some artifact. Left-sided laminectomy changes. Central canal is grossly patent. Neural foramina are patent. L4-L5: Posterior fixation hardware generates beam hardening artifact. Left-sided laminectomy defect. Central canal is grossly patent. Bilateral neural foraminal narrowing. L5-S1: Vacuum disc phenomenon with disc space narrowing and broad-based disc osteophyte complex. Prominent l igamentum flavum hypertrophy and bony hypertrophy of the facets. Central canal stenosis. Bilateral ne ural foraminal narrowing. CONCLUSION: 1. No fracture or dislocation. 2. Posterior fixation from L3-L5. 3. Pronounced multilevel degenerative changes as detailed above. Win Desouza Jr., MD on January 05, 2017 at 1:59 Board Certified Radiologist. This report was verified electronically.
--- NOTE | 2017-01-05 02:06 | RADRPT ---
EXAM DATE/TIME: 01/05/2017 01:44 [facility] COMPARISON: No previous studies available for comparison. INDICATIONS : Left hip pain. Fall 8 days ago. RADIATION DOSE: 19.74 CTDIvol (mGy) MEDICAL HISTORY : Carcinoma, rectal. SURGICAL HISTORY : Appendectomy. Fusion, lumbar. ENCOUNTER: Initial ACUITY: 1 week PAIN SCALE: 4/10 LOCATION: Left pelvis TECHNIQUE: Volumetric scanning of the hip was performed. Using automated exposure control and adjustment of the mA and/or kV according to patient size, radiation dose was kept as low as reasonably achievable to o btain optimal diagnostic quality images. DICOM format image data is available electronically for rev iew and comparison. FINDINGS: BONES: No evidence of fracture. Alignment is within normal limits. JOINTS: There is joint space narrowing and osteophyte production. No joint effusion. SOFT TISSUES: Muscles, tendons and neurovascular structures are grossly unremarkable. No evidence of mass, organize d fluid collection, or foreign body. CONCLUSION: 1. Osteoarthritis. No fracture or dislocation. Win Desouza Jr., MD on January 05, 2017 at 2:03 Board Certified Radiologist. This report was verified electronically.
--- NOTE | 2017-01-05 02:22 | RADRPT ---
EXAM DATE/TIME: 01/05/2017 01:53 [place] COMPARISON: CHEST SINGLE AP, October 17, 2016, 11:03. INDICATIONS : Continuous left hip pain from a fall eight days ago. MEDICAL HISTORY : Carcinoma, rectal. SURGICAL HISTORY : Appendectomy. Fusion, lumbar. ENCOUNTER: Initial ACUITY: 1 week PAIN SCORE: 0/10 LOCATION: Bilateral chest FINDINGS: A single view of the chest demonstrates the lungs to be symmetrically aerated without evidence of mas s, infiltrate or effusion. The cardiomediastinal contours are unremarkable. A scoliotic and degenera tive thoracic spine. CONCLUSION: No acute disease. Win Desouza Jr., MD on January 05, 2017 at 2:20 Board Certified Radiologist. This report was verified electronically.
--- NOTE | 2017-01-05 02:49 | PD ---
HPI Chief Complaint: Hip Injury Time Seen by Provider: 01:28 Travel History International Travel<30 days: No Contact w/Intl Traveler<30days: No Traveled to known affect area: No History of Present Illness HPI The patient is an 86 year old male who presents to the [facility] emergency department with a history of left hip pain that he reports began after a fall at a [facility] the [facility]. The patient reports that he has a history of chronic left hip pain, however it is been worse since the fall. He reports that he has pain in the left buttock that radiates down into the posterior leg and stops at the knee. He denies having any numbness or tingling to his legs. He reports that he does have difficulty ambulating. He reports that when he tries to stand on the leg and weight-bear he feels like his knee is point to give out. The patient was seen in the emergency department on January 03 related to the symptoms. The patient at that time had a hip x-ray and a CT scan of the brain. Both showed no acute abnormality. The patient was then discharged to home. The patient reports that he lives at home alone and is unable to care for himself as he cannot walk. On review of systems otherwise, he denies any recent fevers, cough, congestion, neck pain, chest pain, shortness of breath, abdominal pain, vomiting, diarrhea, urinary symptoms, loss of bowel or bladder control, or weakness of his arms or legs. [facility] Past Medical History Narrative Medical Patient's past medical history is significant for arthritis, history of anxiety disorder, history of rectal cancer, skin cancer, history of being hard of hearing, history of spinal stenosis, history of insomnia, history of peripheral neuropathy, history of chronic left hip pain. The patient reports that his primary care physician is Dr. Gay at a local urgent care center. He denies taking any prescribed medications currently. He reports that he is taking vitamins. Arthritis: Yes Blood Disorders: No Anxiety: Yes (ATIVAN) Cancer: Yes (RECTAL IN 2002; skin) Cardiovascular Problems: No Chemotherapy: Yes Diabetes: No Diminished Hearing: Yes Endocrine: No Gastrointestinal Disorders: Yes Glaucoma: No Genitourinary: No Immune Disorder: No Implanted Vascular Access Dvce: No Insomnia: Yes Musculoskeletal: Yes (SPINAL STENOSIS) Neurologic: Yes (PERIPHERAL NEUROPATHY BOTH LOWER EXT(feet)) Respiratory: No Radiation Therapy: Yes (IN 2002 FOR RECTAL CA) Tetanus Vaccination: < 5 Years Influenza Vaccination: Yes Past Surgical History Narrative Surgical The patient's past surgical history is significant for an appendectomy, tonsillectomy, skin cancer resection. Abdominal Surgery: Yes Appendectomy: Yes Oral Surgery: Yes (TONSILECTOMY) Tonsillectomy: Yes Other Surgery: Yes (skin cancer removed) Social History Alcohol Use: No Tobacco Use: No Substance Use: No Allergies-Medications (Allergen,Severity, Reaction): Coded Allergies: gabapentin (Unverified Allergy, Severe, DIFFICULTY OF SWALLOWING, SOB, ) thioridazine (Unverified Allergy, Severe, FLUSHED, HOT, 01/05/17) Reported Meds & Prescriptions Reported Meds & Active Scripts Active No Active Prescriptions or Reported Medications Review of Systems Except as stated in HPI: all other systems reviewed are Neg General / Constitutional: No: Fever Eyes: No: Visual changes HENT: No: Headaches Cardiovascular: No: Chest Pain or Discomfort Respiratory: No: Shortness of Breath Gastrointestinal: No: Abdominal Pain Genitourinary: No: Dysuria Musculoskeletal: Positive: Myalgias, Arthralgias, Limited ROM, Pain Skin: No Rash Neurologic: No: Weakness Psychiatric: No: Depression Endocrine: No: Polydipsia Hematologic/Lymphatic: No: Easy Bruising Physical Exam Narrative General: The patient is a well-developed well-nourished male in no acute distress. Head and Neck exam: Head is normocephalic atraumatic. Eyes: EOMI, pupils are equal round and reactive to light. Nose: Midline septum with pink mucous membranes Mouth: Dentition unremarkable. Moist mucus membranes. Posterior oropharynx is not erythematous. No tonsillar hypertrophy. Uvula midline. Airway patent. Neck: No palpable lymphadenopathy. No nuchal rigidity. No thyromegaly. Cardiovascular: Regular rate and rhythm without murmurs, gallops, or rubs. Lungs: Clear to auscultation bilaterally. No wheezes, rhonchi, or rales. Abdomen: Soft, without tenderness to palpation in all 4 quadrants of the abdomen. No guarding, rebound, or rigidity. Normal bowel sounds are audible. No tenderness on palpation of McBurney's point. Extremities: No clubbing, cyanosis, or edema. 2+ pulses in all 4 extremities. The patient reports having left buttock pain. There is no visible erythema or ecchymosis. No swelling or crepitus. The patient has no pain with internal or external rotation of the left hip. There is no shortening. The patient is able to weight-bear, however he cannot walk related to pain in the left buttock. Back: No spinous process tenderness to palpation. No costovertebral angle tenderness to palpation. Neurologic Exam: Cranial nerves 2-12 were intact on exam. Strength is 5/5 in all 4 extremities. No sensory deficits noted. Skin Exam: No rash noted. Intact skin that is warm and dry. Data Data Last Documented VS Vital Signs Date Time Temp Pulse Resp B/P (MAP) Pulse Ox O2 Delivery O2 Flow Rate FiO2 01/05/17 01:35 Room Air Orders Orders Electrocardiogram (01/05/17 01:33) Complete Blood Count With Diff (01/05/17 01:33) Comprehensive Metabolic Panel (01/05/17 01:33) Prothrombin Time / Inr (Pt) (01/05/17 01:33) Act Partial Throm Time (Ptt) (01/05/17 01:33) Lipase (01/05/17 01:33) Urinalysis - C+S If Indicated (01/05/17 01:33) Chest, Single Ap (01/05/17 01:33) Iv Access Insert/Monitor (01/05/17 01:33) Ecg Monitoring (01/05/17 01:33) Oximetry (01/05/17 01:33) Ct Lumb Spine W/O Contrast (01/05/17 ) Ct Hip W/O Contrast (01/05/17 ) Urine Culture (01/05/17 03:23) Ceftriaxone Inj (Rocephin Inj) (01/05/17 03:45) Admit Order (Ed Use Only) (01/05/17 03:50) Ceftriaxone Inj (Rocephin Inj) (01/06/17 06:00) Place In Observation (01/05/17 ) Vital Signs (Adult) Q4H (01/05/17 03:50) Neuro Checks Q4H (01/05/17 03:50) Activity Oob With Assistance (01/05/17 03:50) Diet Regular Basic (01/05/17 Breakfast) Sodium Chlor 0.9% 1000 Ml Inj (Ns 1000 M (01/05/17 03:50) Sodium Chloride 0.9% Flush (Ns Flush) (01/05/17 04:00) Sodium Chloride 0.9% Flush (Ns Flush) (01/05/17 09:00) Ondansetron Inj (Zofran Inj) (01/05/17 04:00) Comprehensive Metabolic Panel (01/06/17 06:00) Complete Blood Count With Diff (01/06/17 06:00) Pt Request For Service (01/05/17 03:50) Case Management Consult (01/05/17 03:50) Scd Bilateral/Knee High LEOBARDO.BID (01/05/17 03:50) Gregorio Bilateral/Knee High LEOBARDO.QSHIFT (01/05/17 04:00) Acetaminophen (Tylenol) (01/05/17 04:00) Morphine Inj (Morphine Inj) (01/05/17 04:00) Oxycodone (Roxicodone) (01/05/17 04:00) Docusate Sodium-Senna (Josie-Colace) (01/05/17 09:00) Magnesium Hydroxide Liq (Milk Of Magnesi (01/05/17 04:00) Sennosides (Senokot) (01/05/17 04:00) Bisacodyl Supp (Dulcolax Supp) (01/05/17 04:00) Lactulose Liq (Lactulose Liq) (01/05/17 04:00) Labs Laboratory Tests Test 01/05/17 03:05 01/05/17 03:23 White Blood Count 7.1 TH/MM3 Red Blood Count 3.88 MIL/MM3 Hemoglobin 12.7 GM/DL Hematocrit 36.8 % Mean Corpuscular Volume 94.7 FL Mean Corpuscular Hemoglobin 32.6 PG Mean Corpuscular Hemoglobin Concent 34.4 % Red Cell Distribution Width 14.4 % Platelet Count 192 TH/MM3 Mean Platelet Volume 6.9 FL Neutrophils (%) (Auto) 64.2 % Lymphocytes (%) (Auto) 21.0 % Monocytes (%) (Auto) 10.2 % Eosinophils (%) (Auto) 4.2 % Basophils (%) (Auto) 0.4 % Neutrophils # (Auto) 4.5 TH/MM3 Lymphocytes # (Auto) 1.5 TH/MM3 Monocytes # (Auto) 0.7 TH/MM3 Eosinophils # (Auto) 0.3 TH/MM3 Basophils # (Auto) 0.0 TH/MM3 CBC Comment DIFF FINAL Differential Comment Prothrombin Time 11.1 SEC Prothromb Time International Ratio 1.0 RATIO Activated Partial Thromboplast Time 28.2 SEC Blood Urea Nitrogen 10 MG/DL Creatinine 0.73 MG/DL Random Glucose 83 MG/DL Total Protein 7.3 GM/DL Albumin 3.6 GM/DL Calcium Level 8.7 MG/DL Alkaline Phosphatase 57 U/L Aspartate Amino Transf (AST/SGOT) 24 U/L Alanine Aminotransferase (ALT/SGPT) 25 U/L Total Bilirubin 0.7 MG/DL Sodium Level 138 MEQ/L Potassium Level 3.7 MEQ/L Chloride Level 104 MEQ/L Carbon Dioxide Level 24.8 MEQ/L Anion Gap 9 MEQ/L Estimat Glomerular Filtration Rate 102 ML/MIN Lipase 150 U/L Urine Color YELLOW Urine Turbidity HAZY Urine pH 7.0 Urine Specific [place] 1.008 Urine Protein 30 mg/dL Urine Glucose (UA) 300 mg/dL Urine Ketones NEG mg/dL Urine Occult Blood MOD Urine Nitrite NEG Urine Bilirubin NEG Urine Urobilinogen LESS THAN 2.0 MG/DL Urine Leukocyte Esterase MOD Urine RBC 18 /hpf Urine WBC 70 /hpf Urine Squamous Epithelial Cells <1 /hpf Urine Amorphous Sediment RARE Urine Bacteria OCC /hpf Urine Mucus FEW /lpf Microscopic Urinalysis Comment CULTURE INDICATED MDM Medical Decision Making Medical Screen Exam Complete: Yes Emergency Medical Condition: Yes Medical Record Reviewed: Yes Interpretation(s) Last Impressions Chest X-Ray 01/05/17 0133 Signed Impressions: Service Date/Time: Thursday, January 05, 2017 01:53 - CONCLUSION: No acute disease. Win Desouza Jr., MD Lumbar Spine CT 01/05/17 0000 Signed Impressions: Service Date/Time: Thursday, January 05, 2017 01:44 - CONCLUSION: 1. No fracture or dislocation. 2. Posterior fixation from L3-L5. 3. Pronounced multilevel degenerative changes as detailed above. Win Desouza Jr., MD Lower Extremity CT 01/05/17 0000 Signed Impressions: Service Date/Time: Thursday, January 05, 2017 01:44 - CONCLUSION: 1. Osteoarthritis. No fracture or dislocation. Win Desouza Jr., MD Differential Diagnosis Occult hip fracture, versus sciatica, versus pelvis fracture, versus lumbar spine injury Narrative Course During the course of the patients emergency department visit, the patients history, examination, and differential diagnosis were reviewed with the patient. The patient had IV access obtained and blood work sent for analysis. CT scan of the left hip, lumbar spine was ordered. The patients laboratory studies were reviewed and remarkable for a white count of 7.1, hemoglobin 12.7, platelets 192 with 10.2 monocytes, CMP is unremarkable , lipase 150, PT PTT within normal limits. Urinalysis shows moderate occult blood, moderate leukocyte esterase, RBC 18, WBC 70, occasional bacteria, culture indicated. Radiology studies were reviewed and remarkable for a chest x-ray that shows no acute abnormality. CT scan of the left hip shows osteoarthritis, no fracture or dislocation. CT scan of the lumbar spine shows no fracture or dislocation, posterior fixation from L3 through L5, pronounced multilevel degenerative changes. As the patient is unable to ambulate, patient will be admitted to the hospital for continued evaluation and treatment and physical therapy consultation. The patient was started on Rocephin 1 g IV for a urinary tract infection. The patients results were discussed with the patient, including the plan of care. I explained that further testing and/ or monitoring is indicated based on the patients history, examination, and/ or laboratory findings. Therefore, I recommended admission for additional evaluation. The patient expressed understanding and was agreeable with this plan. The patient was admitted to the hospital in stable condition and sent to a bed [facility] the [facility]. Physician Communication Physician Communication The patient's case was discussed with Dr. Brandt who did agree to admit the patient for further evaluation and treatment at this time. Diagnosis Primary Impression: Inability to ambulate due to hip Additional Impression: Urinary tract infection Qualified Codes: N39.0 - Urinary tract infection, site not specified Admitting Information Admitting Physician Requests: Admit Scripts No Active Prescriptions or Reported Meds Kiley Baac MD Jan 05, 2017 02:49
[2017-01-05 03:17] LABS: AUTOMATED NEUTROPHIL # 4.5 TH/MM3 (1.8-7.7); BASOPHIL % 0.4 % (0.0-2.0); EOSINOPHIL # 0.3 TH/MM3 (0-0.4); EOSINOPHIL % 4.2 % (0.0-4.0); HEMATOCRIT 36.8 % (39.0-51.0); HEMO FLAGS DIFF FINAL; LYMPHOCYTE # 1.5 TH/MM3 (1.0-4.8); MEAN CELL VOLUME 94.7 FL (80.0-100.0); MEAN CORPUSCULAR HEMOGLOBIN 32.6 PG (27.0-34.0); MEAN CORPUSCULAR HGB CONC 34.4 % (32.0-36.0); MONO % 10.2 % (0.0-8.0); NEUT % 64.2 % (16.0-70.0); PLATELET COUNT 192 TH/MM3 (150-450); RED BLOOD COUNT 3.88 MIL/MM3 (4.50-5.90); RED CELL DISTRIBUTION WIDTH 14.4 % (11.6-17.2); WHITE BLOOD COUNT 7.1 TH/MM3 (4.0-11.0)
[2017-01-05 03:29] LABS: ALT (GPT) 25 U/L (12-78); ANION GAP 9 MEQ/L (5-15); AST (GOT) 24 U/L (15-37); BICARBONATE 24.8 MEQ/L (21.0-32.0); BLOOD UREA NITROGEN 10 MG/DL (7-18); CHLORIDE 104 MEQ/L (98-107); GLOMERULAR FILTRATION RATE 102 ML/MIN (>89); POTASSIUM 3.7 MEQ/L (3.5-5.1); SODIUM (NA) 138 MEQ/L (136-145)
[2017-01-05 03:31] LABS: ALKALINE PHOSPHATASE 57 U/L (45-117); TOTAL BILIRUBIN ADULT 0.7 MG/DL (0.2-1.0)
[2017-01-05 03:34] LABS: APTT (PATIENT) 28.2 SEC (24.3-30.1); PROTHROMBIN TIME - PATIENT 11.1 SEC (9.8-11.6)
[2017-01-05 03:40] LABS: BACTERIA, URINE OCC /hpf; BLOOD, URINE MOD (NEG); COMMENT (UR) CULTURE INDICATED; CULTURE IF INDICATED CULTURE INDICATED; GLUCOSE,URINE 300 mg/dL (NEG); KETONE, URINE NEG (NEG); MUCUS URINE FEW /lpf (OCC); NITRITE,URINE NEG (NEG); SQUAMOUS EPITHELIAL CELL URINE <1 /hpf (0-5); URINE COLOR YELLOW (YELLW/STRAW)
[2017-01-05] MEDS ORDERED: cefTRIAXone INJ 1,000 MG in SODIUM CHLORIDE 0.9% INJ 100 ML IV ONE (03:45)
[2017-01-05] MEDS ORDERED: SODIUM CHLORIDE 0.9% FLUSH 10 ML FLUSH IV FLUSH PRN (04:00)
[2017-01-05] MEDS ORDERED: MAGNESIUM HYDROXIDE SUSP 30 ML CUP PO PRN (04:00)
[2017-01-05] MEDS ORDERED: SENNOSIDES 8.6 MG TAB PO PRN (04:00)
[2017-01-05] MEDS ORDERED: LACTULOSE SYRUP 20 GM/30 ML CUP PO PRN (04:00)
[2017-01-05] MEDS ORDERED: BISACODYL 10 MG SUPP RECTAL PRN (04:00)
[2017-01-05] MEDS ORDERED: ONDANSETRON HCL 4 MG/2 ML VIAL IVP PRN (04:00)
[2017-01-05] MEDS ORDERED: ACETAMINOPHEN 325 MG TAB PO PRN (04:00)
[2017-01-05] MEDS ORDERED: MORPHINE SULFATE 4 MG/ML INJ IV PUSH PRN (04:00)
[2017-01-05 04:32] VITALS: O2SAT 99
[2017-01-05] MEDS: SODIUM CHLOR 0.9% 1000 ML INJ 1,000 ML IV SCH ×3 (04:46→08:49)
[2017-01-05 08:00] VITALS: BP 118/69; PULSE 86; RESP 16; TEMP 97.6; O2SAT 100
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
[2017-01-05] MEDS: DOCUSATE SODIUM 50 MG/SENNA 8.6 MG TAB PO SCH ×2 (08:48→21:01)
[2017-01-05] MEDS: SODIUM CHLORIDE 0.9% FLUSH 10 ML FLUSH IV FLUSH SCH ×2 (08:48→21:02)
--- NOTE | 2017-01-05 11:56 | EKG ---
Date Performed: 01/05/2017 Time Performed: 04:35:51 PTAGE: 86 years EKG: Sinus rhythm WITH OCCASIONAL VENTRICULAR PREMATURE COMPLEXES BORDERLINE ECG PREVIOUS TRACING : 10/17/2016 11.47 No significant change from previous tracing noted DOCTOR: Narciso Machado Interpretating Date/Time 01/05/2017 11:54:37
[2017-01-05 12:00] VITALS: BP 140/58; PULSE 87; RESP 17; TEMP 98.7; O2SAT 98
[2017-01-05] MEDS ORDERED: CIPROFLOXACIN 500 MG TAB PO SCH (13:00)
[2017-01-05] MEDS: CIPROFLOXACIN 250 MG TAB PO SCH ×2 (15:27→21:01)
[2017-01-05 16:00] VITALS: BP 108/57; PULSE 82; RESP 17; TEMP 97.8; O2SAT 97
[2017-01-05 20:00] VITALS: BP 96/56; PULSE 73; RESP 18; TEMP 97.8; O2SAT 96
[2017-01-06] VITALS: BP 115/57; PULSE 78; RESP 18; TEMP 97.5; O2SAT 98
[2017-01-06] MEDS ORDERED: CHLORHEXIDINE GLUCONATE 2 % 1 PACK (2 CLOTHS)(extra cloths) TOPICAL PRN (03:45)
[2017-01-06 04:00] VITALS: BP 110/59; PULSE 69; RESP 16; TEMP 97.8; O2SAT 96
[2017-01-06] MEDS ORDERED: CHLORHEXIDINE GLUCONATE 2 % 1 PACK (2 CLOTHS)(taper/protocol) TOPICAL SCH (04:00)
[2017-01-06 05:48] LABS: AUTOMATED NEUTROPHIL # 2.8 TH/MM3 (1.8-7.7); BASOPHIL % 0.8 % (0.0-2.0); EOSINOPHIL # 0.4 TH/MM3 (0-0.4); EOSINOPHIL % 7.2 % (0.0-4.0); HEMATOCRIT 35.4 % (39.0-51.0); HEMO FLAGS DIFF FINAL; LYMPH % 26.6 % (9.0-44.0); LYMPHOCYTE # 1.4 TH/MM3 (1.0-4.8); MEAN CELL VOLUME 93.5 FL (80.0-100.0); MEAN CORPUSCULAR HEMOGLOBIN 31.7 PG (27.0-34.0); MEAN CORPUSCULAR HGB CONC 33.9 % (32.0-36.0); MONO % 12.2 % (0.0-8.0); NEUT % 53.2 % (16.0-70.0); PLATELET COUNT 186 TH/MM3 (150-450); RED BLOOD COUNT 3.78 MIL/MM3 (4.50-5.90); RED CELL DISTRIBUTION WIDTH 13.8 % (11.6-17.2); WHITE BLOOD COUNT 5.3 TH/MM3 (4.0-11.0)
[2017-01-06] MEDS ORDERED: cefTRIAXone INJ 1,000 MG in SODIUM CHLORIDE 0.9% INJ 100 ML IV SCH (06:00)
[2017-01-06 06:16] LABS: ALT (GPT) 22 U/L (12-78); ANION GAP 8 MEQ/L (5-15); AST (GOT) 19 U/L (15-37); BICARBONATE 27.5 MEQ/L (21.0-32.0); BLOOD UREA NITROGEN 9 MG/DL (7-18); CHLORIDE 103 MEQ/L (98-107); GLOMERULAR FILTRATION RATE 118 ML/MIN (>89); POTASSIUM 3.8 MEQ/L (3.5-5.1); SODIUM (NA) 138 MEQ/L (136-145)
[2017-01-06 06:18] LABS: ALKALINE PHOSPHATASE 54 U/L (45-117); TOTAL BILIRUBIN ADULT 0.5 MG/DL (0.2-1.0)
[2017-01-06 08:00] VITALS: BP 107/67; PULSE 63; RESP 14; TEMP 97.5; O2SAT 97
[2017-01-06] MEDS: DOCUSATE SODIUM 50 MG/SENNA 8.6 MG TAB PO SCH (08:16)
[2017-01-06] MEDS: SODIUM CHLORIDE 0.9% FLUSH 10 ML FLUSH IV FLUSH SCH (08:16)
[2017-01-06] MEDS: CIPROFLOXACIN 250 MG TAB PO SCH (08:16)
[2017-01-06] MEDS ORDERED: MUPIROCIN 2% OINT 1 APPLIC/GM SYR NASAL SCH (09:00)
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
[2017-01-06] MEDS ORDERED: CIPR250T52 PO (10:30)
[2017-01-06] MEDS ORDERED: BACTOIN NASAL (10:30)
[2017-01-06] MEDS ORDERED: OXYC-392 PO (10:30)
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
[2017-01-06 12:00] VITALS: BP 103/58; PULSE 65; RESP 16; TEMP 98.3; O2SAT 98
== END 2017-01-06 14:46 | disposition short-term general hospital (02) ==
LOC: NEPE 00:45 → INTOOBSV 03:52 → NEDA 03:52 → N03A 06:24
PROVIDERS: ADMIT Internal Medicine; ATTEND Internal Medicine
DX: M25.552 Pain in left hip (principal); R26.2 Difficulty in walking, not elsewhere classified; N39.0 Urinary tract infection, site not specified; G62.9 Polyneuropathy, unspecified; M48.00 Spinal stenosis, site unspecified; K59.00 Constipation, unspecified; F41.9 Anxiety disorder, unspecified; R94.31 Abnormal electrocardiogram [ECG] [EKG]; G47.00 Insomnia, unspecified; W19.XXXA Unspecified fall, initial encounter; Z85.048 Personal history of other malignant neoplasm of rectum, rectosigmoid junction, and anus; Z92.3 Personal history of irradiation; Z92.21 Personal history of antineoplastic chemotherapy; Y92.89 Other specified places as the place of occurrence of the external cause; M16.12 Unilateral primary osteoarthritis, left hip; H91.90 Unspecified hearing loss, unspecified ear
CPT/HCPCS: 71010; 72131; 73700; 80053; 81001; 83690; 85025; 85610; 85730; 87086; 87641; 93005; 96365; 97110; 97162; 97530; 99285; G0378; G8987; G8988; J0696; J7030